=== PATIENT | female | born 1985 ===

== ENCOUNTER 2021-07-31 07:50 | Emergency (ER) | payer BC, MEDICAID ==
[2021-07-31] MEDS ORDERED: HYDROmorphone 1 MG/1 ML INJ IV ONE (08:07)
[2021-07-31] MEDS ORDERED: ONDANSETRON 4 MG/2 ML INJ IV ONE (08:07)
[2021-07-31] MEDS ORDERED: SODIUM CHLORIDE 0.9% 1000 ML 1,000 ML IV ONE (08:07)
[2021-07-31 09:20] LABS: Basophils # (Auto) 0.1 K/mm3 (0.0-0.1); Eosinophils # (Auto) 0.1 K/mm3 (0.0-0.4); Eosinophils % (Auto) 1.4 % (0.0-4.3); Hemoglobin 11.7 gm/dl (10.1-14.3); Lymphocytes # (Auto) 1.3 K/mm3 (1.2-5.4); Lymphocytes % (Auto) 17.6 % (13.4-35.0); Mean Corpuscular HGB Conc 33 % (30-34); Mean Corpuscular Volume 81 fl (79-97); Monocytes # (Auto) 0.5 K/mm3 (0.0-0.8); Monocytes % (Auto) 6.7 % (0.0-7.3); Platelet Count 340 K/mm3 (140-440); Red Blood Count 4.31 M/mm3 (3.65-5.03); Red Cell Distribution Width 19.6 % (13.2-15.2)
[2021-07-31 09:41] LABS: Blood Urea Nitrogen 9 mg/dL (7-17); Calcium 8.8 mg/dL (8.4-10.2); Hemolysis Index 7
[2021-07-31 09:55] LABS: BUN/Creatinine Ratio 18
[2021-07-31] MEDS ORDERED: METOCLOPRAMIDE 10 MG/2 ML INJ IV ONE (10:00)
--- NOTE | 2021-07-31 10:04 | Emergency Department Report ---
ED Abdominal Pain HPI - General Chief Complaint: Abdominal Pain Stated Complaint: ABD PAIN Time Seen by Provider: 07/31/21 08:06 Source: patient, EMS Mode of arrival: Stretcher Limitations: No Limitations - History of Present Illness Initial Comments: ABD PAIN, N/V/D. HX GASTRITIS SINCE JUNE, WORSE THIS PAST WEEK. LMP 2 WEEKS AGO MD Complaint: abdominal pain -: Gradual, week(s) Location: diffuse Migration to: no migration Severity scale (0 -10): 10 Quality: aching Consistency: intermittent Improves With: nothing Worsens With: nothing Associated Symptoms: nausea, vomiting - Related Data LMP (females 10-50): last week Previous Rx's Medication Instructions Recorded Last Taken Type Famotidine [Pepcid] 20 mg PO BID #30 tablet 07/31/21 Unknown Rx Omeprazole 20 mg PO DAILY #30 07/31/21 Unknown Rx Ondansetron [Zofran Odt] 4 mg PO Q8HR #14 tab.rapdis 07/31/21 Unknown Rx Allergies Allergy/AdvReac Type Severity Reaction Status Date / Time No Known Allergies Allergy Verified 07/31/21 07:56 ED Review of Systems ROS: Stated complaint: ABD PAIN Other details as noted in HPI Comment: All other systems reviewed and negative Constitutional: denies: chills, fever Eyes: denies: eye pain, eye discharge, vision change ENT: denies: ear pain, throat pain Respiratory: denies: cough, shortness of breath, wheezing Cardiovascular: denies: chest pain, palpitations Endocrine: no symptoms reported Gastrointestinal: denies: abdominal pain, nausea, diarrhea Genitourinary: denies: urgency, dysuria, discharge Musculoskeletal: denies: back pain, joint swelling, arthralgia Skin: denies: rash, lesions Neurological: denies: headache, weakness, paresthesias Psychiatric: denies: anxiety, depression Hematological/Lymphatic: denies: easy bleeding, easy bruising ED Past Medical Hx - Past Medical History Previous Medical History?: No Hx Hypertension: No - Medications Home Medications: Home Medications Medication Instructions Recorded Confirmed Last Taken Type Famotidine [Pepcid] 20 mg PO BID #30 tablet 07/31/21 Unknown Rx Omeprazole 20 mg PO DAILY #30 07/31/21 Unknown Rx Ondansetron [Zofran Odt] 4 mg PO Q8HR #14 tab.rapdis 07/31/21 Unknown Rx ED Physical Exam - General Limitations: No Limitations General appearance: alert, in no apparent distress - Head Head exam: Present: atraumatic, normocephalic - Eye Eye exam: Present: normal appearance - ENT ENT exam: Present: mucous membranes moist - Neck Neck exam: Present: normal inspection - Respiratory Respiratory exam: Present: normal lung sounds bilaterally. Absent: respiratory distress - Cardiovascular Cardiovascular Exam: Present: regular rate, normal rhythm. Absent: systolic murmur, diastolic murmur, rubs, gallop - GI/Abdominal GI/Abdominal exam: Present: soft, tenderness, normal bowel sounds. Absent: guarding, rebound - Extremities Exam Extremities exam: Present: normal inspection - Back Exam Back exam: Present: normal inspection - Neurological Exam Neurological exam: Present: alert, oriented X3 - Psychiatric Psychiatric exam: Present: normal affect, normal mood - Skin Skin exam: Present: warm, dry, intact, normal color. Absent: rash ED Course Vital Signs 07/31/21 07/31/21 07/31/21 07:54 08:21 08:30 Temperature 98.9 F Pulse Rate 79 Respiratory 18 Rate Blood Pressure 120/73 Blood Pressure 126/78 [Left] O2 Sat by Pulse 98 100 100 Oximetry - Reevaluation(s) Reevaluation #1: 07/31/21 10:02 WORK UP SHOWED NORMAL WBC , PT IS REQUESTING DIALDUID IT IS THE ONLY THING THAT WORK FOR , VSS NO DISTRESS PT IS COMFORTABLE NO DISTRESS ED Medical Decision Making - Lab Data Result diagrams: 07/31/21 08:49 07/31/21 08:49 Critical care attestation.: If time is entered above; I have spent that time in minutes in the direct care of this critically ill patient, excluding procedure time. ED Disposition Clinical Impression: Abdominal pain, Gastritis, Nausea & vomiting Disposition: 01 HOME / SELF CARE / HOMELESS Is pt being admited?: No Does the pt Need Aspirin: No Condition: Stable Instructions: Abdominal Pain (ED), Nausea, Adult, Nausea and Vomiting, Adult, [id number], Abdominal Pain, Adult Prescriptions: Omeprazole 20 mg PO DAILY #30 Famotidine [Pepcid] 20 mg PO BID #30 tablet Ondansetron [Zofran Odt] 4 mg PO Q8HR #14 tablory Referrals: PRIMARY CARE, [Primary Care Provider] - 3-5 Days
[2021-07-31 10:05] VITALS: BP 104/67
== END 2021-07-31 10:30 | disposition home or self-care (01) ==
LOC: ED 07:50
DX: K29.70 Gastritis, unspecified, without bleeding (principal); R10.9 Unspecified abdominal pain; R11.2 Nausea with vomiting, unspecified
CPT/HCPCS: 36415; 80048; 82150; 83690; 84703; 85025; 96361; 96374; 96375; 99284; J1170; J2405; J2765; J7030; Q0162